=== PATIENT | female | born 1970 | race Caucasian/White ===

== ENCOUNTER 2023-11-16 13:22 | Outpatient (AMB) | payer MEDICAID, SELFPAY ==
--- NOTE | 2023-11-16 13:30 | MHC.OFFVIS ---
Vital Signs 11/16/23 13:43 Height 5 ft 1 in Weight 153 lb 4 oz BMI 29.0 BP 124/80 Blood Pressure Location Lt brachial Position Sitting Pulse 79 Pulse Source Pulse Oximeter Pulse Oximetry (%) 98 Oxygen Delivery Method Room Air Intake Visit Reasons: ENP-Vertigo -LVM Intake Note: Patient presents for vertigo. Almost everyday feeling dizzy. Feeling of balance when walking. Allergies No Known Allergies Allergy (Verified 11/16/23 13:35) Medication List - Last Reconciled 11/16/23 by BRIA Smith cetirizine 10 mg PO DAILY cholecalciferol (vitamin D3) (Vitamin D3) 50 mcg PO DAILY esomeprazole magnesium 20 mg PO DAILY levothyroxine (Synthroid) 100 mcg PO DAILY magnesium oxide 400 mg PO DAILY medroxyprogesterone 10 mg PO DAILY olmesartan 5 mg PO BID riboflavin (vitamin B2) 400 mg PO DAILY HPI Comments Details: 53-yr-old female presents for new pt evaluation of dizziness. Pt reports she started having dizziness about 3 years ago. She thought it was due to doing a lot of work in her home. At that time, she also started having BP changes- low at times and high at times- but was previously low. States this is better now that she is on BP tx. More recently, the dizziness is better. The dizziness is an off-balance sensation and ? lightheadedness. Sometimes can feel this when sitting. Can feel this after standing up or bending over. She can feel off-balance when the floor is carpeted w/ many colors/patterns or even a patterned floor that is not carpeted. Generally the dizziness is better in the warmer weather, and worse in the colder weather. Sometimes she can have horizontal diplopia- such as when watching something on her phone. Sometimes she will have blurry distance vision. Has neck pain- worse in the winter- started a few years ago. Has seen PT and chiropractor. Has chronic back pain- prone to feeling pain when she wakes up in the morning, sometimes has flare-up of back pain x's a few weeks. Her hands easily fall asleep when sitting and not moving her hands, or doing too much w/ her hands. Her feet may fall asleep too- but not as much. She has a tremor- notices internal tremor. Denies B&B changes. Her sleep is restless- tosses and turns states d/tbody pains- does not trigger dizziness. But laying flat makes her feel like she is falling backwards. Denies gait changes. She is prone to worry and anxiety- she is worried about what is going on in her home [facility]. When she has a migraine attack- the blurry vision and dizziness is worse. She started having migraine about 13 yrs ago. Migraine- may start w/ small lights that grow bigger and bigger f/b right sided headache a/w photophobia, some phonophobia, N/V, dizziness is worse, blurry vision is worse, feels generally weak, and BP raises, and needs to lay down. Migraine typically lasts a few days. She has milder headache before/after her menses, if tired or has not slept well. She states she has a strong severe headache about 3 times per year. She states maybe she does not drink enough- she tries to make herself drink. Denies room spinning dizziness. She has an annual eye exam- no sig changes.. She saw ENT- states they only checked her ears. Did vestibular PT- states it did make her feel unwell, maybe helped some. [facility] Surgical History (Updated 11/16/23 @ 13:40 by YUVAL West) History of thyroid surgery Family History (Updated 11/16/23 @ 13:42 by YUVAL West) Father Liver disease Mother No problems noted. Social History (Updated 11/16/23 @ 13:43 by YUVAL West) Household Members: Spouse and Children Housing: House Alcohol intake: never Patient Tobacco Use Status: Never used Tobacco Physical Exam Vital Signs: Last Vital Signs Pulse 79 11/16/23 13:43 BP 124/80 11/16/23 13:43 Pulse Ox 98 11/16/23 13:43 Oxygen Delivery Method Room Air 11/16/23 13:43 BMI result Body Mass Index 29.0 Const Orientation/consciousness: patient oriented x3 HEENT Other: No palpable scalp tenderness. Head: Yes normocephalic Resp Effort & Inspection: normal respiratory effort and able to speak in complete sentences Neuro Other: Romberg- sways some- but dose not lose balance. Bilateral posterior cervical tightness. General: patient oriented x3 Cranial nerves: Yes CN's II-XII intact bilaterally Cognition (Neuro): normal cognition Gait exam (Neuro): Normal gait present Motor exam (neuro): 5/5 motor strength present throughout Deep tendon reflexes (DTR's): Right triceps reflex intensity grade: 2+, Left triceps reflex intensity grade: 2+, Rt Biceps (C5, C6): 2+, Left biceps reflex intensity grade: 2+, Right brachioradialis reflex intensity grade: 2+, Left brachioradialis reflex intensity grade: 2+, Right patellar reflex intensity grade: 2+ and Left patellar reflex intensity grade: 2+ Coordination: [id number] test normal and tandem gait normal Pupils: Normal pupillary reactivity/response: bilateral Psych Appearance: grossly normal Mental Status: mental status grossly normal Speech and movement: Normal speech and movement present Affect: normal affect Attitude: cooperative Thought process: Normal thought process present Results Reviewed Results Reviewed: 11/25/2022, MRI Brain W+W/O Contrast [facility] VISIT NUMBER :[id number] Patient Name: Jaye García Date of : 1970 Date of Exam: 11-25-2022 Referring Physician: Everett De Leon [facility] [address] [facility] [address] [place] [address] Exam: MR Brain (C-/C+) CPT 93550 Room Description: [facility] 3T MR Brain (C-/C+) CPT 14087 INDICATION / CLINICAL QUESTION: Migraine headache Migraine headache TECHNIQUE: MRI of the brain was performed with and without contrast utilizing sagittal T1, 3D sagittal T1 LEMON with multiplanar reformats, fat saturated axial T2, axial FLAIR, axial SWAN, 3D axial T2 CUBE, and axial DWI sequences, and post-contrast 3D T1 LEMON with multiplanar reformats. 14 mL Dotarem intravenous contrast was administered. COMPARISON: None. FINDINGS: BRAIN and EXTRA-AXIAL SPACES: The ventricles and sulci are normal in size. There are scattered nonspecific punctate FLAIR hyperintensities in the subcortical and periventricular white matter without enhancement. There is no evidence of restricted diffusion to suggest acute infarction. The brainstem and cerebellum are normal. Vascular loop crosses over the superior aspect of the cisternal segments of the bilateral trigeminal nerves, with possible mass effect on the right side. There is no hemorrhage, midline shift, or mass effect. There is no extra-axial collection. Flow voids are preserved in the dominant intracranial vessels. There is no abnormal enhancement EXTRACRANIAL SOFT TISSUES: Orbits are unremarkable. Paranasal sinuses and mastoids are unremarkable. BONES: Marrow signal is preserved. IMPRESSION: No acute intracranial abnormality. No enhancing lesions. Mild nonspecific white matter signal changes have very broad differential, but are most commonly attributed to chronic small vessel disease in this age group. Vascular loop crosses over the cisternal segments of the bilateral trigeminal nerves, with possible mass effect on the right side. This can be correlated for right-sided trigeminal nerve symptoms. 07/25/23, MRI Cervical Spine W/O Contrast MRI Cervical Spine W/O Contrast Reason: M54.9 DORSALGIA M54.5 LOW BACK PAIN M54.2 CERVICALGIA M54.12 RADICULOPATHY CERVICAL REGION M62.838 MUSCLE SPASM R20.2 PARESTHESIA OF SKIN; Clinical Question(s): Other: Other: TECHNIQUE: MRI of the cervical spine was performed without intravenous contrast utilizing sagittal T1, sagittal T2, sagittal STIR, axial gradient echo, and axial T2-weighted sequences. COMPARISON: 07/12/2019 FINDINGS: LOCALIZER: No additional findings on limited localizer images. ALIGNMENT, VERTEBRAE, MARROW, AND DISCS: The cervical alignment is normal. The cervical vertebral bodies are normal in height. No marrow edema. The C7-T1 disc remains moderate-severity diminished in height. Mild loss of height at C5-C6 with uncovertebral spurring. Mild facet arthroses of the cervical spine. POSTERIOR FOSSA AND CORD: The visualized posterior cranial fossa structures and cervicomedullary junction are unremarkable. The cervical cord is normal in signal. PARASPINAL TISSUES: The paraspinal soft tissues and visualized vertebral artery flow voids are unremarkable DETAILED FINDINGS BY LEVEL: C2-C3: No significant canal stenosis or neural foraminal narrowing. C3-C4: Mild right facet arthrosis. No significant central canal or foraminal narrowing. C4-C5: A very subtle right paracentral disc protrusion has slightly increased in size. No significant central canal or foraminal narrowing. C5-C6: Posterior disc-osteophyte complex asymmetric to the left. Minimal indentation of the ventral thecal sac, unchanged. Minimal right and moderate-severe left foraminal stenosis. No significant change. C6-C7: A subtle right paracentral disc protrusion is noted incidentally indenting the ventral thecal sac. No foraminal stenosis. C7-T1: Minimal concentric disc-osteophyte complex. No significant central canal or foraminal narrowing. IMPRESSION: Degenerative changes of the cervical spine and discs as noted above. There is no new cord compression or cord signal abnormality. Foraminal narrowing remains most pronounced on the left at C5-C6. 07/25/23, MRI Thoracic Spine W/O Contrast MRI Thoracic Spine W/O Contrast Reason: M54.9 DORSALGIA M54.5 LOW BACK PAIN M54.2 CERVICALGIA M54.12 RADICULOPATHY CERVICAL REGION M62.838 MUSCLE SPASM R20.2 PARESTHESIA OF SKIN; Clinical Question(s): Other: / Other: TECHNIQUE: MRI of the thoracic spine was performed without intravenous contrast utilizing sagittal T1, sagittal T2, sagittal STIR, axial T1, and axial T2-weighted sequences. COMPARISON: None. FINDINGS: LOCALIZER: No additional findings on limited localizer images. The localizer images show 7 cervical, 12 thoracic, and 5 lumbar type vertebral bodies. ALIGNMENT, VERTEBRAE, MARROW, AND DISCS: Alignment is normal. Vertebral body heights are preserved. There are hemangiomas which are most prominent at the T5 and T8 levels. Multilevel endplate osteophytes are present. There is multilevel disc desiccation but there is no significant loss of intervertebral disc height. CORD: The thoracic cord is normal in signal and contour. PARASPINAL TISSUES: Visualized paraspinal soft tissues are unremarkable. There is a probable small uterine fibroid. FINDINGS BY LEVEL: There is a right paracentral disc protrusion at the C6-C7 level. There is a minimal disc bulge at C7-T1. There is a small left paracentral disc protrusion at T5-T6 and a small left paracentral disc protrusion at T6-T7. Mild facet arthropathy is noted at multiple levels. However, no significant central stenosis or neural foraminal narrowing is seen at any level in the thoracic spine. IMPRESSION: Minor degenerative changes of the thoracic spine with no significant canal stenosis or neural foraminal narrowing. 07/25/23, MRI Lumbar Spine W/O Contrast MRI Lumbar Spine W/O Contrast INDICATION: Reason: M54.9 DORSALGIA M54.5 LOW BACK PAIN M54.2 CERVICALGIA M54.12 RADICULOPATHY CERVICAL REGION M62.838 MUSCLE SPASM R20.2 PARESTHESIA OF SKIN; Clinical Question(s): Other: Other: TECHNIQUE: MRI of the lumbar spine was performed without intravenous contrast utilizing sagittal T1, sagittal T2, sagittal STIR, axial T1, and axial T2-weighted sequences. COMPARISON: None. FINDINGS: LOCALIZER: No additional findings on limited localizer images. NUMBERING: The study assumes 5 [id number] lumbar type vertebral bodies. ALIGNMENT, VERTEBRAE, MARROW, AND DISCS: Alignment is normal. Vertebral body heights are preserved. There is no significant marrow signal abnormality. There is disc desiccation at the L2-L3 and L4-L5 level. There are small endplate osteophytes at L2-L3. Intervertebral disc heights are preserved. Small hemangioma is noted at L4. CONUS: The conus is normal in signal and contour, with normal level of termination at L1-L2. PARASPINAL TISSUES: The paraspinal soft tissues are unremarkable. There are small simple appearing bilateral renal cysts which do not require dedicated follow-up. DETAILED FINDINGS BY LEVEL: L1-L2: No significant canal stenosis or neural foraminal narrowing. L2-L3: No significant canal stenosis or neural foraminal narrowing. L3-L4: No significant canal stenosis or neural foraminal narrowing. L4-L5: Minimal disc bulge and facet spurring. Left lateral annular fissure. No significant canal stenosis or neural foraminal narrowing. L5-S1: No significant canal stenosis or neural foraminal narrowing. IMPRESSION: Minor degenerative changes of the lumbar spine with no evidence for nerve root impingement. 09/07/22, Noncontrast CT head performed concurrently. FINDINGS: CTA OF THE NECK: Arch: There is a three vessel aortic arch. The origins of the supra aortic vessels are patent. Right carotid system: The common carotid and cervical internal carotid arteries are patent. No stenosis (0%) by NASCET criteria. There is no dissection or aneurysm. Left carotid system: The common carotid and cervical internal carotid arteries are patent. No stenosis (0%) by NASCET criteria. There is no dissection or aneurysm. There is a co-dominant vertebral artery system. Right vertebral: No significant stenosis. No evidence of dissection or aneurysm. Left vertebral: No significant stenosis. No evidence of dissection or aneurysm. Other: Soft tissues and bones: No evidence of lymphadenopathy or mass. The thyroid is unremarkable. Visualized lung apices are clear. Mild degenerative changes of the cervical spine are noted, without acute osseous abnormality. CTA OF THE HEAD: Anterior circulation: Bilateral intracranial ICAs and their JOSR and MCA branches are patent. There is no significant stenosis, proximal cutoff, aneurysm, or vascular malformation. Posterior circulation: Bilateral intracranial vertebral arteries, the basilar artery, and bilateral superior cerebellar and posterior cerebral branches are patent. There is no significant stenosis, proximal cutoff, aneurysm, or vascular malformation. Veins: Major dural venous sinuses are patent. Other: Soft tissues and bones: No midline shift or effacement of the basal cisterns. No space-occupying hemorrhage. No territorial loss of rae-white matter differentiation. Orbits are unremarkable. There is mild mucosal thickening in the inferior left maxillary sinus. Remaining paranasal sinuses and mastoids are clear. IMPRESSION: No proximal occlusion or high grade stenosis in the major arteries of the head and neck. 12/12/2019, BUE EMG/NCS: IMPRESSION: ?Abnormal study. There is nerve conduction study evidence of mild bilateral median mononeuropathies at the wrists (consistent with carpal tunnel syndromes) including focal sensory fiber demyelination without axon loss. ?EMG of bilateral abductor pollicis brevis muscle is normal. No nerve conduction study evidence of bilateral ulnar neuropathies at the wrists or elbows (cubital tunnel syndromes) or superficial radial neuropathies. No nerve conduction study evidence of a large fiber sensorimotor polyneuropathy affecting the upper extremities. No EMG evidence of bilateral brachial plexopathies or C6-T1 radiculopathies. No EMG evidence of myopathy affecting studied of muscles in the upper extremities. Assessment & Plan Assessment & Plan (1) Vertigo: Code(s): R42 - Dizziness and giddiness Category: Medical (2) Migraine: Code(s): G43.909 - Migraine, unspecified, not intractable, without status migrainosus Category: Medical (3) Cervicalgia: Code(s): M54.2 - Cervicalgia Category: Medical (4) Bilateral carpal tunnel syndrome: Code(s): G56.03 - Carpal tunnel syndrome, bilateral upper limbs Category: Medical Plan Brain MRI, November 2022- Vascular loop crosses over the cisternal segments of the bilateral trigeminal nerves, with possible mass effect on the right side. No clear evidence of right TN- will monitor. Advised to try taking Amitriptyline 10mg nightly. Add Baclofen 10mg qhs. Increase fluids. Monitor tremor, BUE CTS s/s. Futire considerations- referral back to vestibular tx, tilt table test. Pt seen in c/w Dr Molly Hathaway. Medications: New amitriptyline 10 mg PO BEDTIME 30 tabs 3RF 30 days baclofen 10 mg PO BEDTIME 30 tabs 3RF 30 days Coding Level of Care Code New Pt Level 4 (34074) Diagnoses Vertigo R42 Migraine G43.909 Cervicalgia M54.2 Bilateral carpal tunnel syndrome G56.03
[2023-11-16 13:43] VITALS: BP 124/80; PULSE 79; O2SAT 98; BMI 29.0
== END 2023-11-16 14:57 | disposition home or self-care (01) ==
PROVIDERS: PCP Physician Assistant Medical; Visit Provider Nurse Practitioner Family
DX: R42 Dizziness and giddiness (principal); G43.909 Migraine, unspecified, not intractable, without status migrainosus; M54.2 Cervicalgia; G56.03 Carpal tunnel syndrome, bilateral upper limbs
CPT/HCPCS: 99204

== ENCOUNTER → 2023-11-16 13:22 | Outpatient (BNVA) | payer MEDICAID, SELFPAY | PROVIDERS: PCP Physician Assistant Medical; Visit Provider Nurse Practitioner Family | DX: R42 Dizziness and giddiness (principal); G43.909 Migraine, unspecified, not intractable, without status migrainosus; M54.2 Cervicalgia; G56.03 Carpal tunnel syndrome, bilateral upper limbs | CPT/HCPCS: 99212 ==

== ENCOUNTER 2024-04-01 07:33 | Outpatient (AMB) | payer MEDICAID, SELFPAY ==
[2024-04-01 07:40] VITALS: BP 140/80; BMI 29.9
--- NOTE | 2024-04-01 07:40 | MHC.OFFVIS ---
Vital Signs 04/01/24 07:40 Height 5 ft 1 in Weight 158 lb BMI 29.9 BP 140/80 H Blood Pressure Location Rt brachial Position Sitting Intake Visit Reasons: 3 month f/u Intake Note: Patient presents for follow up Allergies No Known Allergies Allergy (Verified 04/01/24 07:42) Medication List - Last Reconciled 04/01/24 by BRIA Smith baclofen 10 mg PO BEDTIME 30 days cetirizine 10 mg PO DAILY cholecalciferol (vitamin D3) (Vitamin D3) 50 mcg PO DAILY esomeprazole magnesium 20 mg PO DAILY gabapentin 100 - 300 mg (1 - 3 x 100 mg) PO BEDTIME 30 days levothyroxine (Synthroid) 100 mcg PO DAILY magnesium oxide 400 mg PO DAILY medroxyprogesterone 10 mg PO DAILY olmesartan 5 mg PO BID riboflavin (vitamin B2) 400 mg PO DAILY HPI Comments Details: 53-yr-old female presents for f/u visit. She has had an occasional bout of dizziness, like being off-balance. Using Amitriptyline when she remembers to take it. States her migraine is ok- has some nights with headaches, uses Tylenol a few times a week-which helps regular headaches. No recent migraine. Pt reports she started having episodes of restless legs- legs are jumpy when she lays down- skeeps w/ head slightly elevated as laying flat causes difficulty breathing, a/w wheezing and increased resp rate (like taking an extra breathe). Initially this lasted 20 minutes, but the last time this lasted 40-60 minutes. Both the restlessness and breathing s/s resolve when she gets up to walk. Leg s/s are not affected by amitriptyline use. She also notes some swelling in her toes, back pain when she lays down, difficulty rolling over in bed d/t pain and heaviness, feels slow like an old woman when she gets up in the morning, everything feels harder and more difficult to do in the morning, tremor when she has to think about something or talk w/ someone or nervous, orthostatic lightheadedness, rarely may say something during a bad dream. Endorses h/o anemia. May snore. Denies gasping, leg cramps, creepy crawling sensation, SOB during the day. Denies hyposmia, constipation. Initial 11/16/23 HPI: 53-yr-old female presents for new pt evaluation of dizziness. Pt reports she started having dizziness about 3 years ago. She thought it was due to doing a lot of work in her home. At that time, she also started having BP changes- low at times and high at times- but was previously low. States this is better now that she is on BP tx. More recently, the dizziness is better. The dizziness is an off-balance sensation and ? lightheadedness. Sometimes can feel this when sitting. Can feel this after standing up or bending over. She can feel off-balance when the floor is carpeted w/ many colors/patterns or even a patterned floor that is not carpeted. Generally the dizziness is better in the warmer weather, and worse in the colder weather. Sometimes she can have horizontal diplopia- such as when watching something on her phone. Sometimes she will have blurry distance vision. Has neck pain- worse in the winter- started a few years ago. Has seen PT and chiropractor. Has chronic back pain- prone to feeling pain when she wakes up in the morning, sometimes has flare-up of back pain x's a few weeks. Her hands easily fall asleep when sitting and not moving her hands, or doing too much w/ her hands. Her feet may fall asleep too- but not as much. She has a tremor- notices internal tremor. Denies B&B changes. Her sleep is restless- tosses and turns states d/t body pains- does not trigger dizziness. But laying flat makes her feel like she is falling backwards. Denies gait changes. She is prone to worry and anxiety- she is worried about what is going on in her home [place] [facility]. When she has a migraine attack- the blurry vision and dizziness is worse. She started having migraine about 13 yrs ago. Migraine- may start w/ small lights that grow bigger and bigger f/b right sided headache a/w photophobia, some phonophobia, N/V, dizziness is worse, blurry vision is worse, feels generally weak, and BP raises, and needs to lay down. Migraine typically lasts a few days. She has milder headache before/after her menses, if tired or has not slept well. She states she has a strong severe headache about 3 times per year. She states maybe she does not drink enough- she tries to make herself drink. Denies room spinning dizziness. She has an annual eye exam- no sig changes.. She saw ENT- states they only checked her ears. Did vestibular PT- states it did make her feel unwell, maybe helped some. [facility] Medical History (Updated 04/07/24 @ 16:33 by BRIA Smith) Anemia Surgical History History of thyroid surgery Family History Father Liver disease Mother No problems noted. Social History Household Members: Spouse and Children Housing: House Alcohol intake: never Patient Tobacco Use Status: Never used Tobacco Physical Exam Vital Signs: Last Vital Signs BP 140/80 H 04/01/24 07:40 BMI result Body Mass Index 29.9 Const Orientation/consciousness: patient oriented x3 HEENT Head: Yes normocephalic Resp Effort & Inspection: normal respiratory effort and able to speak in complete sentences Neuro Other: RUE mild tremor in wing beta position. BUE RAFI intact FFM- intact Foot taps- slightly less fluid on right. Stands easily, shorter steps, but steady. General: patient oriented x3 Cranial nerves: Yes CN's II-XII intact bilaterally Cognition (Neuro): normal cognition Gait exam (Neuro): Normal gait present Motor exam (neuro): 5/5 motor strength present throughout Deep tendon reflexes (DTR's): Right patellar reflex intensity grade: 2+ and Left patellar reflex intensity grade: 2+ Psych Appearance: grossly normal Mental Status: mental status grossly normal Affect: normal affect Attitude: cooperative Assessment & Plan Assessment & Plan (1) Vertigo: Code(s): R42 - Dizziness and giddiness Category: Medical (2) Migraine: Code(s): G43.909 - Migraine, unspecified, not intractable, without status migrainosus Category: Medical (3) Cervicalgia: Code(s): M54.2 - Cervicalgia Category: Medical (4) Bilateral carpal tunnel syndrome: Code(s): G56.03 - Carpal tunnel syndrome, bilateral upper limbs Category: Medical (5) Snoring: Code(s): R06.83 - Snoring Category: Medical (6) Hypersomnia: Code(s): G47.10 - Hypersomnia, unspecified Category: Medical Plan Check labs for common etiologies of restless legs, tremor. HST to assess for sleep apnea. Increase fluids. Stop Amitriptyline 10mg nightly- may exacerbate restless leg s/s. Trial Gabapentin 100-300mg qhs- may help w/ tremor, pain, restless leg s/s. Baclofen 10mg qhs. Monitor tremor, BUE CTS s/s, headaches. No clear evidence of right TN- will monitor. Brain MRI, November 2022- Vascular loop crosses over the cisternal segments of the bilateral trigeminal nerves, with possible mass effect on the right side. Future considerations- referral back to vestibular tx, tilt table test. Orders: Orders Complete Blood Count Auto Diff Today D64.9 - Anemia, unspecified, I10 - Essential (primary) hypertension, R25.1 - Tremor, unspecified Methylmalonic Acid Today D64.9 - Anemia, unspecified, I10 - Essential (primary) hypertension, R25.1 - Tremor, unspecified Ferritin Today D64.9 - Anemia, unspecified, I10 - Essential (primary) hypertension, R25.1 - Tremor, unspecified TSH reflex Free T4 Today D64.9 - Anemia, unspecified, I10 - Essential (primary) hypertension, R25.1 - Tremor, unspecified Comprehensive Met. Panel Today D64.9 - Anemia, unspecified, I10 - Essential (primary) hypertension, R25.1 - Tremor, unspecified Homocysteine Today D64.9 - Anemia, unspecified, I10 - Essential (primary) hypertension, R25.1 - Tremor, unspecified Vitamin B12 and Folate Today D64.9 - Anemia, unspecified, I10 - Essential (primary) hypertension, R25.1 - Tremor, unspecified IRON PROFILE Today D64.9 - Anemia, unspecified, I10 - Essential (primary) hypertension, R25.1 - Tremor, unspecified Vitamin D 25-OH (D2 and D3) Today E55.9 - Vitamin D deficiency, unspecified RT home sleep study Today G47.10 - Hypersomnia, unspecified, R06.83 - Snoring Medications: New gabapentin 100 - 300 mg (1 - 3 x 100 mg) PO BEDTIME 30 days 90 caps 3RF Coding Level of Care Code Est Pt Level 4 (93112) Diagnoses Vertigo R42 Migraine G43.909 Cervicalgia M54.2 Bilateral carpal tunnel syndrome G56.03 Snoring R06.83 Hypersomnia G47.10
== END 2024-04-01 08:31 | disposition home or self-care (01) ==
PROVIDERS: PCP Physician Assistant Medical; Visit Provider Nurse Practitioner Family
DX: R42 Dizziness and giddiness (principal); G43.909 Migraine, unspecified, not intractable, without status migrainosus; M54.2 Cervicalgia; G56.03 Carpal tunnel syndrome, bilateral upper limbs; R06.83 Snoring; G47.10 Hypersomnia, unspecified
CPT/HCPCS: 99214

== ENCOUNTER → 2024-04-01 07:33 | Outpatient (BNVA) | payer MEDICAID, SELFPAY | PROVIDERS: PCP Physician Assistant Medical; Visit Provider Nurse Practitioner Family | DX: G43.909 Migraine, unspecified, not intractable, without status migrainosus (principal); G56.03 Carpal tunnel syndrome, bilateral upper limbs; G47.10 Hypersomnia, unspecified; M54.2 Cervicalgia; R06.83 Snoring; D64.9 Anemia, unspecified; R25.1 Tremor, unspecified; I10 Essential (primary) hypertension; R42 Dizziness and giddiness | CPT/HCPCS: 99212 ==

== ENCOUNTER 2024-04-08 11:43 | Outpatient (REF) | payer MEDICAID, SELFPAY ==
[2024-04-08 12:48] LABS: MANUAL DIFF FLAG NO
[2024-04-08 13:17] LABS: Basophils Percent Auto 0.5 % (0-2); Eosinophils Absolute Auto 0.1 X10*3/uL (0.0-0.4); Eosinophils Percent Auto 1.9 % (0-4); Hematocrit 38.8 % (37.0-47.0); Hemoglobin 13.5 g/dl (12.0-16.0); Imm Gran Abs Auto 0.01 X10*3/uL (0.00-0.03); Imm Gran Pct Auto 0.3 % (0.0-0.4); Lymphocytes Absolute Auto 1.6 X10*3/uL (1.2-4.9); Lymphocytes Percent Auto 43.7 % (20-40); Mean Corpuscular HGB Conc 34.8 g/dl (31.0-35.0); Mean Corpuscular Hemoglobin 30.3 pg (27.0-33.0); Mean Corpuscular Volume 87.2 fL (80.0-98.0); Mean Platelet Volume 10.4 fL (9.4-12.3); Monocytes Absolute Auto 0.3 X10*3/uL (0.1-1.2); Monocytes Percent Auto 7.7 % (2-11); Neutrophils Absolute Auto 1.7 x10*3/uL (2.0-8.3); Neutrophils Percent Auto 45.9 % (45-73); Platelet Count 282 X10*3/uL (160-400); Red Blood Count 4.45 X10*6/uL (4.20-5.50); Red Cell Distribution Width 11.5 % (11.0-16.0); White Blood Count 3.7 X10*3/uL (4.8-10.8)
[2024-04-08 14:24] LABS: Alanine Aminotransferase 19 U/L (0-31); Albumin Level 4.2 g/dL (3.5-5.0); Alkaline Phosphatase 62 U/L (39-117); Anion Gap 11 (12-20); Aspartate Amino Transferase 21 U/L (5-31); Bilirubin Total 0.4 mg/dL (0.0-1.0); Blood Urea Nitrogen 11 mg/dL (9-16); Calcium 9.7 mg/dL (8.4-10.2); Carbon Dioxide 26 mmol/L (22-29); Chloride 108 mmol/L (96-108); Estimated Glomerular Filt Rate > 60; Glucose Random 82 mg/dL (60-115); Iron 112 mcg/dL (30-160); Percent Iron Saturation 36 % (15-50); Potassium 3.5 mmol/L (3.3-5.1); Sodium 141 mmol/L (135-145); Total Iron Binding Capacity 307 mcg/dL (228-428); Total Protein 7.4 g/dL (6.5-8.0); Unsaturated Iron Binding 195 ug/dL
[2024-04-08 14:28] LABS: Ferritin 23 ng/mL (10-250); TSH reflex Free T4 0.73 uIU/mL (0.32-4.0)
[2024-04-08 14:44] LABS: Folate 16.4 ng/mL (> or = 4.0); Vitamin B12 494 pg/mL (200-900)
[2024-04-10 18:59] LABS: Homocysteine 6.9 umol/L (<10.4)
[2024-04-12 15:38] LABS: Methylmalonic Acid 125 nmol/L (55-335)
[2024-04-13 15:59] LABS: Vitamin D 25-OH, D2 <4 ng/mL; Vitamin D 25-OH, D3 24 ng/mL; Vitamin D 25-OH, Total 24 ng/mL (30-100)
== END 2024-04-08 11:44 | disposition home or self-care (01) ==
LOC: HO.HMGCLDS 11:43
PROVIDERS: PCP Physician Assistant Medical; Visit Provider Nurse Practitioner Family
DX: D64.9 Anemia, unspecified (principal); R25.1 Tremor, unspecified; I10 Essential (primary) hypertension; E55.9 Vitamin D deficiency, unspecified
CPT/HCPCS: 36415; 80053; 82306; 82607; 82728; 82746; 83090; 83540; 83921; 84443; 85025

== ENCOUNTER → 2024-05-22 10:02 | Outpatient (REF) | payer MEDICAID, SELFPAY | LOC: HO.SL 10:02 | PROVIDERS: PCP Physician Assistant Medical; Visit Provider Nurse Practitioner Family | DX: R06.83 Snoring (principal); G47.10 Hypersomnia, unspecified | CPT/HCPCS: 95806 ==

== ENCOUNTER → 2024-05-23 10:15 | Outpatient (BNV) | payer MEDICAID, SELFPAY | PROVIDERS: PCP Physician Assistant Medical; Visit Provider Psychiatry & Neurology Neurology | DX: R06.83 Snoring (principal); G47.10 Hypersomnia, unspecified | CPT/HCPCS: 95806 ==

== ENCOUNTER 2025-01-02 09:00 | Outpatient (AMB) | payer MEDICAID, SELFPAY ==
[2025-01-02 09:03] VITALS: BP 134/98; PULSE 81; O2SAT 98; BMI 29.1
--- NOTE | 2025-01-02 09:03 | MHC.OFFVIS ---
Vital Signs 01/02/25 09:03 Height 5 ft 1 in Weight 154 lb 2 oz BMI 29.1 BP 134/98 H Blood Pressure Location Lt brachial Position Sitting Pulse 81 Pulse Source Pulse Oximeter Pulse Oximetry (%) 98 Oxygen Delivery Method Room Air Intake Visit Reasons: Folow-up Intake Note: Patient presents follow up Vertigo/Migraine. Labs/HST in chart. Patient states migraines are better. Still has times of dizziness. Accompanied by: Self / Same As Patient Allergies No Known Allergies Allergy (Verified 01/02/25 09:05) Medication List - Last Reconciled 01/02/25 by BRIA Smith baclofen 10 mg PO BEDTIME 30 days cetirizine 10 mg PO DAILY cholecalciferol (vitamin D3) (Vitamin D3) 50 mcg PO DAILY esomeprazole magnesium 20 mg PO DAILY gabapentin 100 - 300 mg (1 - 3 x 100 mg) PO BEDTIME 30 days levothyroxine (Synthroid) 100 mcg PO DAILY magnesium oxide 400 mg PO DAILY medroxyprogesterone 10 mg PO DAILY olmesartan 5 mg PO BID riboflavin (vitamin B2) 400 mg PO DAILY HPI Comments Details: 53-yr-old female presents for f/u visit for dizziness, migraine/headache, and tremor. Interval labs were noatble for vit D def- pt started on OTC vit D supplement. lower ferritin level- 20. She has had an occasional bout of dizziness, like being off-balance. Her sleep varies, sometimes good, other times more fragmented. Restless legs are better since taking Mag, States her migraine and headaches are better right now- seem better since her menses stopped. Uses Tylenol prn. Taking Gabapentin 100mg qhs- tolerating well. Tried once to take 2 caps, but states her head felt strange in the am. No longer taking Baclofen. Is taking OTC man and B2. Continues to have tremor when anxious, or needs to speak to someone. Has had a couple of episode of having to really think about standing up, and once or twice having to think about initiating a step. Can still have orthostatic lightheadedness. Can feel general weakness and tredness if she does more, even say [place] May not drink enough fluids in a day, but tries. Notes too much exercise- tried to do 30 minutes a day, but after a month, she felt that she her body could not do anything. Can be prone to worry. Denies depression. Denies hyposmia- rather more osmophobic. Denies constipation. Denies family h/o PD or other movement d/o. Denies h/o neuroleptic tx, metoclopramide tx, or in-pt psychiatric hospitalization. Denies h/o occupational chemical exposures. Initial 11/16/23 HPI: 53-yr-old female presents for new pt evaluation of dizziness. Pt reports she started having dizziness about 3 years ago. She thought it was due to doing a lot of work in her home. At that time, she also started having BP changes- low at times and high at times- but was previously low. States this is better now that she is on BP tx. More recently, the dizziness is better. The dizziness is an off-balance sensation and ? lightheadedness. Sometimes can feel this when sitting. Can feel this after standing up or bending over. She can feel off-balance when the floor is carpeted w/ many colors/patterns or even a patterned floor that is not carpeted. Generally the dizziness is better in the warmer weather, and worse in the colder weather. Sometimes she can have horizontal diplopia- such as when watching something on her phone. Sometimes she will have blurry distance vision. Has neck pain- worse in the winter- started a few years ago. Has seen PT and chiropractor. Has chronic back pain- prone to feeling pain when she wakes up in the morning, sometimes has flare-up of back pain x's a few weeks. Her hands easily fall asleep when sitting and not moving her hands, or doing too much w/ her hands. Her feet may fall asleep too- but not as much. She has a tremor- notices internal tremor. Denies B&B changes. Her sleep is restless- tosses and turns states d/t body pains- does not trigger dizziness. But laying flat makes her feel like she is falling backwards. Denies gait changes. She is prone to worry and anxiety- she is worried about what is going on in her home [place] [facility]. When she has a migraine attack- the blurry vision and dizziness is worse. She started having migraine about 13 yrs ago. Migraine- may start w/ small lights that grow bigger and bigger f/b right sided headache a/w photophobia, some phonophobia, N/V, dizziness is worse, blurry vision is worse, feels generally weak, and BP raises, and needs to lay down. Migraine typically lasts a few days. She has milder headache before/after her menses, if tired or has not slept well. She states she has a strong severe headache about 3 times per year. She states maybe she does not drink enough- she tries to make herself drink. Denies room spinning dizziness. She has an annual eye exam- no sig changes.. She saw ENT- states they only checked her ears. Did vestibular PT- states it did make her feel unwell, maybe helped some. [facility] Medical History Anemia Surgical History History of thyroid surgery Family History Father Liver disease Mother No problems noted. Social History Household Members: Spouse and Children Housing: House Alcohol intake: never Patient Tobacco Use Status: Never used Tobacco Physical Exam Vital Signs: Last Vital Signs Pulse 81 01/02/25 09:03 BP 134/98 H 01/02/25 09:03 Pulse Ox 98 01/02/25 09:03 Oxygen Delivery Method Room Air 01/02/25 09:03 BMI result Body Mass Index 29.1 Const Orientation/consciousness: patient oriented x3 HEENT Head: Yes normocephalic Resp Effort & Inspection: normal respiratory effort and able to speak in complete sentences Neuro Other: RUE mild tremor in wing beat position. BUE RAFI intact FFM- intact Foot taps- slightly less fluid on left Stands easily, shorter steps, but steady. General: patient oriented x3 Cranial nerves: Yes CN's II-XII intact bilaterally Cognition (Neuro): normal cognition Gait exam (Neuro): Normal gait present Motor exam (neuro): 5/5 motor strength present throughout Deep tendon reflexes (DTR's): Right patellar reflex intensity grade: 2+ and Left patellar reflex intensity grade: 2+ Psych Appearance: grossly normal Mental Status: mental status grossly normal Affect: normal affect Attitude: cooperative Assessment & Plan Assessment & Plan (1) Vertigo: Code(s): R42 - Dizziness and giddiness Category: Medical (2) Migraine: Code(s): G43.909 - Migraine, unspecified, not intractable, without status migrainosus Category: Medical Qualifiers: Migraine type: migraine (< 15 days per month) without aura Status migrainosus presence: without status migrainosus Intractability: not intractable Qualified Code(s): G43.009 - Migraine without aura, not intractable, without status migrainosus (3) Cervicalgia: Code(s): M54.2 - Cervicalgia Category: Medical (4) Bilateral carpal tunnel syndrome: Code(s): G56.03 - Carpal tunnel syndrome, bilateral upper limbs Category: Medical (5) Snoring: Code(s): R06.83 - Snoring Category: Medical (6) Hypersomnia: Code(s): G47.10 - Hypersomnia, unspecified Category: Medical (7) Orthostatic lightheadedness: Code(s): R42 - Dizziness and giddiness Category: Medical (8) Anemia: Code(s): D64.9 - Anemia, unspecified Category: Medical (9) Low iron stores: Code(s): R79.0 - Abnormal level of blood mineral Category: Medical (10) Vitamin D deficiency: Code(s): E55.9 - Vitamin D deficiency, unspecified Category: Medical Plan Will recheck labs, b12, iron studies/ferritin. HST- unremarkable. Increase fluids. Start PT eval & tx- vestibular eval Will order tilt table test- to better understand orthostatic lightheadedness/dizziness. Trial Gabapentin 100mg at 9pm and 12am (bedtime). Pt stopped Baclofen 10mg qhs. Previous trials- Amitriptyline 10mg nightly- may exacerbate restless leg s/s. Monitor tremor, BUE CTS s/s, headaches. No clear evidence of right TN- will monitor. Brain MRI, November 2022- Vascular loop crosses over the cisternal segments of the bilateral trigeminal nerves, with possible mass effect on the right side. Orders: Orders PT Evaluation and Treatment Today H81.10 - Benign paroxysmal vertigo, unspecified ear Ferritin Today D64.9 - Anemia, unspecified, E55.9 - Vitamin D deficiency, unspecified, R79.0 - Abnormal level of blood mineral Vitamin B12 and Folate Today D64.9 - Anemia, unspecified, E55.9 - Vitamin D deficiency, unspecified, R79.0 - Abnormal level of blood mineral ECG Tilt Table Test Today R42 - Dizziness and giddiness Complete Blood Count Auto Diff Today D64.9 - Anemia, unspecified, E55.9 - Vitamin D deficiency, unspecified, R79.0 - Abnormal level of blood mineral Comprehensive [place]. Panel Fast Today D64.9 - Anemia, unspecified, E55.9 - Vitamin D deficiency, unspecified, R79.0 - Abnormal level of blood mineral Vitamin D 25-OH (D2 and D3) Today D64.9 - Anemia, unspecified, E55.9 - Vitamin D deficiency, unspecified, R79.0 - Abnormal level of blood mineral Hemoglobin A1c Today D64.9 - Anemia, unspecified, E55.9 - Vitamin D deficiency, unspecified, R79.0 - Abnormal level of blood mineral IRON PROFILE Today D64.9 - Anemia, unspecified, E55.9 - Vitamin D deficiency, unspecified, R79.0 - Abnormal level of blood mineral Medications: Changed From gabapentin 100 - 300 mg (1 - 3 x 100 mg) PO BEDTIME 30 days 90 caps 3RF To gabapentin at 9pm and 12am 100 mg PO BID 60 caps 3RF 30 days Coding Level of Care Code Est Pt Level 4 (99647) Diagnoses Vertigo R42 Migraine without aura and without status migrainosus, not intractable G43.009 Migraine type: migraine (< 15 days per month) without aura Status migrainosus presence: without status migrainosus Intractability: not intractable Cervicalgia M54.2 Bilateral carpal tunnel syndrome G56.03 Snoring R06.83 Hypersomnia G47.10 Orthostatic lightheadedness R42 Anemia D64.9 Low iron stores R79.0 Vitamin D deficiency E55.9
--- OUTSIDE RECORDS SUMMARY | 2025-01-02 09:20 | XMS_ITS | Clinical Summary ---
Author Organization [facility] [address] [facility] Address [address] [place] [address] Phone Care Team Providers Care Death Clearance Coordinator Name Role Phone Jayro Pierre MD Primary Care Provider [phone] Allergies No known active allergies Medications levothyroxine (SYNTHROID, LEVOTHROID) 100 mcg tablet Take 1 tablet (100 mcg total) by mouth 1 (one) time each day. Active olmesartan (BENICAR) 5 mg tablet Take 1 tablet (5 mg total) by mouth 1 (one) time each day. Active betamethasone, augmented, (DIPROLENE) 0.05 % ointment APPLY 1 APPLICATION ON THE SKIN EVERY DAY 5 Active cholecalciferol (VITAMIN D-3) 50 mcg (2,000 unit) capsule Take 1 capsule (2,000 Units total) by mouth daily. 5 Active esomeprazole (NexIUM) [address] capsule Take 1 capsule (20 mg total) by mouth 1 (one) time each day. 4 Active fluconazole (DIFLUCAN) 150 mg tablet TAKE 1 TABLET BY MOUTH. REPEAT DOSE IN 72 HOURS. 4 Active ketoconazole (NIZORAL) 2 % cream apply to affected area twice a day for 14 days 4 Active medroxyPROGESTE Chase (PROVERA) 10 mg tablet Take 1 tablet (10 mg total) by mouth 1 (one) time each day. for 10 days 4 Active ofloxacin (FLOXIN) 0.3 % otic solution PUT 10 DROPS IN BOTH EARS DAILY 4 Active riboflavin (VITAMIN B2) 400 mg tablet Take 1 tablet (400 mg total) by mouth 1 (one) time each day. Active VITAMIN B COMPLEX ORAL Take 1 capsule by mouth daily. Active Active Problems Problem Noted Date Diagnosed Date Multiple thyroid nodules 10/20/2022 Cervical disc herniation 12/19/2019 Hypothyroidism 12/19/2019 Surgical History Surgery Date Site/Laterality Comments OTHER SURGICAL HISTORY PROCEDURE: HISTORICAL SUBTOTAL THYROIDECTOMY Medical History Medical History Date Comments Hypothyroidism DX:Hypothyroidis m Hypothyroidism DX:Hypothyroidis m Family History Medical History Relation Name Comments No Known Problems Brother No Known Problems Daughter No Known Problems Father No Known Problems Mother No Known Problems Other No Known Problems Sister No Known Problems Son Autoimmune disease Neg Hx Breast cancer Neg Hx Colon cancer Neg Hx Coronary artery disease Neg Hx Diabetes Neg Hx Heart attack Neg Hx Heart failure Neg Hx Hyperlipidemia Neg Hx Hypertension Neg Hx Mental illness Neg Hx Prostate cancer Neg Hx Sleep apnea Neg Hx Thyroid disease Neg Hx Relation Name Status Comments Brother Daughter Father Mother Other Sister Son Social History Tobacco Use Types Packs/Day Years Used Date Smoking Tobacco: Never Smokeless Tobacco: Never Alcohol Use Standard Drinks/Week Comments Not Currently 0 (1 standard drink = 0.6 oz pur e alcohol) Comments No Sex and Gender Information Value Date Recorded Sex Assigned at Not on file Legal Sex Female 12:20 AM EST Gender Identity Not on file Sexual Orientation Not on file Obstetrics History Para Term AB IAB SAB Ectopic Multiple Livin g Live Births 4 3 3 Date Outcome GA Total Labor Labor/2nd/3rd Weight Sex Type Anes PTL Teresa A1 A5 Name Clin Term Term Term Last Filed Vital Signs Vital Sign Reading Time Taken Comments Blood Pressure 132/75 07/29/2024 11:09 AM EST Pulse 76 07/29/2024 11:09 AM EST Temperature - - Respiratory Rate - - Oxygen Saturation - - Inhaled Oxygen Concentration - - Weight 72.6 kg (160 lb) 07/29/2024 11:09 AM EST Height 154.9 cm (5' 1 ) 11/28/2023 10:19 AM EDT Body Mass Index 30.23 11/28/2023 10:19 AM EDT Plan of Treatment Health Maintenance Due Date Last Done Comments Hepatitis B Vaccines (1 of 3 - 19+ 3-dose series) 11/01/1990 DTaP,Tdap,and Td Vaccines (2 - Td or Tdap) 05/05/2020 05/05/2010 Pneumococcal Vaccine: 50+ Years (1 of 1 - PCV) 11/01/2021 Zoster Vaccines (1 of 2) 11/01/2021 HIV Screening 05/14/2022 Hepatitis C Screening 05/14/2022 Social Influencers of Health Screening 05/14/2022 COVID-19 Vaccine (1 - 2023-2 5 season) 2024 Depression Screening 06/05/2024 Influenza Vaccine (#1) 2025 Breast Cancer Screening 11/30/2025 12/01/19, 12/01/2023 Cervical Cancer Screening: HPV 07/29/2029 0 07/29/2024, 06/11/2019 Colorectal Cancer Screening: Colonoscopy 04/25/2033 04/25/2023 HIB Vaccines Aged Out No longer eligi ble based on patient's age to complete this topic HPV Vaccines Aged Out No longer eligi ble based on patient's age to complete this topic Hepatitis A Vaccines Aged Out No long er eligible based on patient's age to complete this topic IPV Vaccines Aged Out No longer eligi ble based on patient's age to complete this topic MMR Vaccines Aged Out No longer eligi ble based on patient's age to complete this topic Meningococcal ACWY Vaccine Aged Out N o longer eligible based on patient's age to complete this topic Meningococcal B Vaccine Aged Out No l onger eligible based on patient's age to complete this topic RSV Immunization Patients Under 20 months Aged Out No longer eligible b ased on patient's age to complete this topic Varicella Vaccines Aged Out No longer eligible based on patient's age to complete this topic Procedures Procedure Name Priority Date/Time Associated Diagnosis Comments THYROID STIMULATING HORMONE WITH REFLEX TO FREE T4 AND FREE T3 Routine 11/07/2024 3:19 PM EDT Nontoxic uninodular goiter HPV WITH REFLEX GENOTYPE Routine 07/29/2024 11:17 AM EST Encounter for annual physical examination excluding gynecological examination in a patient older than 17 years SCREENING MAMMOGRAPHY BI 2-VIEW BREAST INC CAD Routine 12/01/2023 2:28 PM EDT Encounter for screening mammogram for malignant neoplasm of breast HM COLONOSCOPY Routine 04/25/2023 from Last 3 Months or Most Recently Relevant to Health Maintenance Results * Thyroid stimulating hormone with reflex to free t4 and free t3 (11/07/2024 3:19 PM EDT) TSH 1.16 0.40 - 4.00 mcIU/mL LAB CHEMISTRY METHOD 11/07/2024 6:58 PM EDT [facility] Blood Venous blood specimen / Unknown Venipuncture / Unknown 11/07/2024 3:19 PM EDT 11/07/2024 4:43 PM EDT Ruth Greene MD LAB BLOOD ORDERABLES Final Res ult Performing Organization Address City/[facility]/ZIP Co de Phone Number [facility] [address] [place] [address], [place] [phone] * HPV with reflex genotype (07/29/2024 11:17 AM EST) Pathologist [facility] HPV Negative Negative LAB MICROBIOLOGY METHOD 07/30/2024 1:11 PM EST [facility] Brushing Cervix uteri structure / Unknown 07/29/2024 11:17 AM EST 07/30/2024 6:01 AM EST Delaney Carias CNM LAB MOLECULAR DIAGNOSTICS ORD ERABLES Final Result Performing Organization Address City/[facility]/ZIP Co de Phone Number [facility] [address] [place] [address], [place] [phone] * SCREENING MAMMOGRAPHY BI 2-VIEW BREAST INC CAD (12/01/2023 2:28 PM EDT) Anatomical Region Laterality Modality Radiographic Kendy ging 08/02/2023 10:5 1 AM EST Narrative 12/04/2023 7:38 AM EDT This is a summary report. The complete report is available in the patient's medical record. If you cannot access the medical record, please contact the sending organization for a detailed fax or copy. Full field digital screening tomosynthesis mammography, reviewed with CAD and compared to previous mammogram of 06/14/2019. The breast tissue is heterogeneously dense, limiting sensitivity. No suspicious mass, architectural distortion or suspicious calcifications are identified. IMPRESSION: : Dense breast tissue, limiting the sensitivity of mammography. No mammographic evidence of malignancy. BIRADS 1-Negative; N. 5 year breast cancer risk assessment 1.3 % Lifetime breast cancer risk assessment 10.8 % Breast cancer risk category Low (<15%) Procedure Note Tali Regalado MD - 03/20/2024 This is a summary report. The complete report is available in thepatient's medical record. If you cannot access the medical record, pleasecontact the sending organization for a detailed fax or copy. Full field digital screening tomosynthesis mammography, reviewed with CADand compared to previous mammogram of 06/14/2019. The breast tissue isheterogeneously dense, limiting sensitivity. No suspicious mass,architectural distortion or suspicious calcifications are identified. IMPRESSION: : Dense breast tissue, limiting the sensitivity of mammography. Nomammographic evidence of malignancy. BIRADS 1-Negative; N. 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
--- OUTSIDE RECORDS SUMMARY | 2025-01-02 09:20 | XMS_ITS | Clinical Summary ---
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 12/17/19 22 Active magnesium oxide (MAG-OX) 400 mg (241.3 mg elemental) tablet Take 1 tablet by mouth every morning. 01/14/20 23 Active esomeprazole (NEXIUM) 20 MG capsule Take 1 capsule by mouth daily as needed. 12/30/19 23 Active cetirizine (ZYRTEC) 10 MG tablet Take 1 tablet by mouth every morning. 10/31/19 23 Active ascorbic acid (VITAMIN C ORAL) Take by mouth. Active b complex vitamins capsule Take 1 capsule by mouth daily. Active CALCIUM ORAL Take by mouth. Ac tive cholecalciferol (VITAMIN D3) 2,000 unit capsuleIndications :Vitamin D deficiency, unspecified TAKE 1 CAPSULE BY MOUTH EVERY DAY 90 capsule 3 07/05/19 25 Active SYNTHROID 88 mcg tabletIndications: Postoperative hypothyroidism TAKE 1 TABLET BY MOUTH EVERY MORNING. 90 tablet 1 10/30/19 25 Active Active Problems Problem Noted Date Diagnosed Date Vitamin D deficiency, unspecified 10/30/2023 Assessment & Plan (07/13/2024 11:41 AM EST): History of low vitamin D, last tested in 10/2023 when it was down to 19. She is getting some vitamin D from her calcium supplement and 2000 IU D3 daily. -Added vitamin D level to the today's labs. Assessment & Plan (10/30/2023 8:32 PM EDT): History of low vitamin D. She is getting some vitamin D from her calcium supplement and taking a vitamin D pill of unknown dose maybe once a week. Added vitamin D to her next labs considering her fatigue. Other fatigue 10/30/2023 Assessment & Plan (10/30/2023 8:32 PM EDT): Very sleepy and tired despitesleeping 6 to 7 hours nightly. Sleep is disrupted as above. Denies any major bleeding. Added CBC to next labs. Thyroid nodule 09/16/2023 Assessment & Plan (07/13/2024 11:37 AM EST): Recent ultrasound images reviewed. Small thyroid without distinct nodule. Patient continues to complain about squeezing feeling in her neck especially with cold weather and dry mouth of recent onset. Denies any dysphagia, cough, shortness of breath or voice change. We discussed that her symptoms are unlikely related to her thyroid. No routine ultrasound is planned. Assessment & Plan (10/30/2023 8:28 PM EDT): See below. Assessment & Plan (09/16/2023 11:23 PM EDT): See below. Postoperative hypothyroidism 01/23/2023 Overview (09/16/2023): did not need thyroid hormone replacement after hemithyroidectomy at age 25. She lost 1 and started on levothyroxine during second around 2010. Assessment & Plan (07/13/2024 11:36 AM EST): Remains on Synthroid brand 100 mcg daily. Last TSH normal 1.39 in 10/2023 on this dose. Weight has been stable. Has occasional hot flash. Skipped last 2 cycles. Suspect slight over replacement considering brisk DTRs bilateral hand tremor. Patient had thyroid blood work by her chiropractor in May 2024, she will send it to us. -Continue current Synthroid dose for now -Check TSH today, will communicate through [facility]. -Follow-up in 1 year. Assessment & Plan (10/30/2023 8:30 PM EDT): Patient did not need thyroid hormone replacement after hemithyroidectomy at age 25. She lost 1 and started on levothyroxine during second around 2010. Gradually increasing dose from 50 mcg to 100 mcg daily. No change in dose for years. She did not feel good on the generic and has been taking Synthroid brand for years. She is clinically and biochemically euthyroid. Last TSH 1.4 in 05/2023 while taking 100 mcg Synthroid brand daily. She has been complaining about a lot of fatigue sleepiness within the last few weeks. She is waking up frequently with some liquid in her mouth likely related to reflux. Nocturia x 1. We decided to recheck her TSH make sure that she is euthyroid. Assessment & Plan (09/16/2023 11:25 PM EDT): Patient did not need thyroid hormone replacement after hemithyroidectomy at age 25. She lost 1 and started on levothyroxine during second around 2010. Gradually increasing dose from 50 mcg to 100 mcg daily. No change in dose for years. She did not feel good on the generic and has been taking Synthroid brand for years. She is clinically and biochemically euthyroid. Last TSH 1.4 in 05/2023 while taking 100 mcg Synthroid brand daily. Plan to continue current treatment. Repeat TSH yearly or as clinically indicated. Reviewed symptoms of under and over replacement, patient to call if concern. Assessment & Plan (01/23/2023 2:14 PM EDT): Patient did not need thyroid hormone replacement after hemithyroidectomy at age 25. She lost 1 and started on levothyroxine during second around 2010. Gradually increasing dose from 50 mcg to 100 mcg daily. No change in dose for years. She did not feel good on the generic and has been taking Synthroid brand for years. Recent TSH is not available. Somewhat brisk DTR and slight hand tremor may suggest slight over replacement. We discussed basic thyroid physiology, meaning of TFTs. Reviewed appropriate administration of levothyroxine and symptoms of under and over replacement. Will check TSH and adjust dose as needed. Patient would like to continue the brand Synthroid, will likely need PA. Abnormal thyroid biopsy 01/23/2023 Assessment & Plan (10/30/2023 8:28 PM EDT): Patient is status post left hemithyroidectomy at age 25 in [facility]. Suspect thyrotoxicosis before surgery but no records. Patient denies any thyroid cancer dx. [place] [facility] ( age 15). Tightness/choking sensation in the thyroid bed and voice changes started ~ 2021 especially while lying down. Had an FNA of a right lower/posterior lobe 2 x 1.2 x 1 cm nodule in 06/2022 revealing atypia of undetermined significance with risk of malignancy 6 to 18%. Patient was interested in right thyroid lobe removal because of her symptoms. She saw Dr. Michelle Reynaga on 07/13/2023 who did an informal neck ultrasound reporting a right mid/posterior 8 mm slightly hypoechoic nodule which appears to be extrathyroidal-? parathyroid adenoma or exophytic thyroid nodule. Likely this nodule was biopsied in 06/2022 though it was reported larger in 06/2022. Patient is normocalcemic with normal PTH level as of 07/2023. She has been taking Nexium for GERD and reports improvement in the tightness in her neck area. She is aware that the right thyroid lobectomy is unlikely to improve her symptoms. She had repeat FNA on 09/07/2023 of the right posterior/inferior nodule measuring 1.2 cm at the time of the biopsy. Unfortunately this biopsy was non diagnostic because of insufficient cellularity. Immunohistochemical stain to TTF-1 confirmed that scant follicular cells were present. Specimen for ThyroSeq was taken at the time of FNA but was not sent out. Now we have 1 biopsy of this right-sided nodule showing AUS and another one nondiagnostic. The nodule has not grown since 06/2022. We decided to repeat the ultrasound in 6-8 months as next step. Patient is aware that if the nodule is growing we would have to repeat the biopsy with molecular testing. Assessment & Plan (09/16/2023 11:22 PM EDT): Patient is status post left hemithyroidectomy at age 25 in [facility]. Suspect thyrotoxicosis before surgery but no records. Patient denies any thyroid cancer dx. [place] [facility] ( age 15). Tightness/choking sensation in the thyroid bed and voice changes started ~ 2021 especially while lying down. Had an FNA of a right lower/posterior lobe 2 x 1.2 x 1 cm nodule in 06/2022 revealing atypia of undetermined significance with risk of malignancy 6 to 18%. Patient was interested in right thyroid lobe removal because of her symptoms. She saw Dr. Michelle Reynaga on 07/13/2023 who did an informal neck ultrasound reporting a right mid/posterior 8 mm slightly hypoechoic nodule which appears to be extrathyroidal-? parathyroid adenoma or exophytic thyroid nodule. Likely this nodule was biopsied in 06/2022 though it was reported larger and then. Patient is normocalcemic with normal PTH level as of 07/13/2023. She has been taking Nexium for GERD and reports improvement in the tightness in her neck area. She is aware that the right thyroid lobectomy is unlikely to improve her symptoms. We decided to repeat the FNA of this right nodule with molecular testing. Advised patient to call for results if has not heard from us in 2 weeks. Assessment & Plan (01/23/2023 2:18 PM EDT): Patient is status post hemithyroidectomy likely left lobe removed at age 25 in [facility]. Suspect thyrotoxicosis before surgery but no records. Patient denies any thyroid cancer dx. [place] about [address] [place] [facility] ( age 15). Tightness in the thyroid bed for about 1 year especially while lying down. Had an FNA of a right lower lobe nodule, (size unknown to me, no prior US reports in chart) on 06/21/2022 at [facility]. Cytology is atypia of undetermined significance with risk of malignancy 6 to 18%. Explained that with this indeterminate FNA result we have several options to proceed including repeating the ultrasound to monitor size of nodule and repeat FNA if nodule is growing or repeating the ultrasound with molecular testing or surgery. Patient is interested in completion thyroidectomy because of her symptoms within the last year. We discussed that her symptoms in the thyroid bed could also be caused by GERD since symptoms improved somewhat after Nexium added few months ago. She still would like to have a surgical consultation, will refer to Dr. Michelle Reynaga Encounters Date Type Department Care Team Description 10/28/2024 Refill [facility] [address] [place] [address] Ruth Greene MD Med Change Request from Last 3 Months Social History Tobacco Use Types Packs/Day Years Used Date Smoking Tobacco: Never Smokeless Tobacco: Never Alcohol Use Standard Drinks/Week Comments Never 0 (1 standard drink = 0.6 oz pur e alcohol) Education Answer Date Recorded Are you interested in more education? Not on brenda e 10/17/2022 Are you concerned about learning? Not on file 10/17/2022 No 10/17/2022 No 10/17/2022 Digital Access Answer Date Recorded No 11/01/2022 No 11/01/2022 Reliable internet access at home? Not on file 11/01/2022 Device with a working camera? Not on file Comments Unknown Sex and Gender Information Value Date Recorded Sex Assigned at Not on file Legal Sex Female 4:09 PM EDT Gender Identity Not on file Sexual Orientation Not on file Last Filed Vital Signs Vital Sign Reading Time Taken Comments Blood Pressure 110/60 07/02/2024 11:28 AM EST Pulse 79 07/02/2024 11:28 AM EST Temperature - - Respiratory Rate - - Oxygen Saturation 99% 07/02/2024 11:28 AM EST Inhaled Oxygen Concentration - - Weight 71.2 kg (157 lb) 07/02/2024 11:28 AM EST Height 153.7 cm (5' 0.51 ) 07/02/2024 11:[address] Body Mass Index 30.15 07/02/2024 11:28 AM EST Plan of Treatment Upcoming Encounters Date Type Department Care Team (Late st Contact Info) Description 07/07/2025 11:00 AM EST Office Visit [facility] [address] [place] [address] Ruth Greene MD [address] [place] [phone] [email or web address] Health Maintenance Due Date Last Done Comments Adult Td,Tdap Booster 1971 LIPID PANEL 1971 DEPRESSION SCREENING 1983 HEPATITIS C SCREENING 11/01/1989 HIV ONE-TIME SCREENING (18-6 5 YEARS) 11/01/1989 MAMMOGRAM 2011 COLOGUARD 11/01/2016 COLONOSCOPY 11/01/2016 COLORECTAL CANCER SCREENING 11/01/2016 FIT TEST 11/01/2016 FOBT 11/01/2016 SIGMOIDOSCOPY 11/01/2016 VIRTUAL COLONOSCOPY 11/01/2016 PNEUMOCOCCAL VACCINES (50+ years) (1 of 1 - PCV) 11/01/2021 ZOSTER VACCINES (1 of 2) 11/01/2021 PAP SMEAR 06/11/2022 06/11/2019 COVID-19 VACCINE (1 - 2023-2 5 season) 2024 CREATININE LEVEL 10/22/2024 10/23/2023 POTASSIUM LEVEL 10/22/2024 10/23/2023 TSH LEVEL 07/02/2025 07/02/2024, 10/23/2023, 01/23/2023 SCREENING FOR DIABETES 10/22/2026 10/23/2023 SMOKING STATUS SCREENING (On ce After 26 Yrs) Completed 08/29/2023 HEPATITIS A VACCINES Aged Out No long er eligible based on patient's age to complete this topic HIB VACCINES Aged Out No longer eligi ble based on patient's age to complete this topic MENINGOCOCCAL VACCINES (ACWY) Aged Out No longer eligible based on patient's age to complete this topic MENINGOCOCCAL VACCINES (B) Aged Out N o longer eligible based on patient's age to complete this topic Medical Devices Not on file Procedures Procedure Name Priority Date/Time Associated Diagnosis Comments TSH WITH REFLEX Routine 07/02/2024 12:03 PM EST Thyroid nodule COMPREHENSIVE METABOLIC PANEL Routine 10/23/2023 12:40 PM EDT Vitamin D deficiency, unspecified from Last 3 Months or Most Recently Relevant to Health Maintenance Results * (ABNORMAL) TSH with reflex (07/02/2024 12:03 PM EST) TSH 0.22(L) 0.27 - 4.20 uIU/mL Blood 07/02/2024 12:0 3 PM EST 07/02/2024 12:08 PM EST us Ruth Greene MD LAB BLOOD ORDERABLES Final Res ult Performing Organization Address City/[facility]/ZIP Co de Phone Number [address] [address] * Comprehensive metabolic panel (10/23/2023 12:40 PM EDT) SODIUM 139 133 - 146 mmol/L POTASSIUM 3.9 3.3 - 5.1 mmol/L CHLORIDE 105 96 - 108 mmol/L CO2 22 21 - 35 mmol/L BUN 12 6 - 19 mg/dL CREATININE 0.50 0.5 - 1.5 mg/dL GLUCOSE 83 70 - 99 mg/dL ALBUMIN 4.2 3.9 - 4.8 g/dL TOTAL PROTEIN 7.0 6.5 - 8.0 g/dL CALCIUM 9.2 8.4 - 10.3 mg/dL ALKALINE PHOSPHATASE 52 39 - 117 U/L TOTAL BILIRUBIN 0.4 0.0 - 1.2 mg/dL AST 17 0 - 37 U/L ALT 12 0 - 40 U/L GLOBULIN 2.8 1 - 4.8 g/dL EGFR 113 >59 mL/min/1.7 3m2 Comment:Estimated glomerular filtration rate calculated using the CKD-EPI refit equation. ANION GAP 16 10 - 20 mmol/L Blood 10/23/2023 12:4 0 PM EDT 10/23/2023 12:57 PM EDT us Ruth Greene MD LAB BLOOD ORDERABLES Final Res ult [address] [place] [address] from Last 3 Months or Most Recently Relevant to Health Maintenance Insurance [place] [address] [place] [address] [place] [address] [place] [address] PCC [facility] PCC Care Teams Brazing Machine Operator Helper Relationship Specialty Start Date End Date Kimi Pierre MD [address] [place] [id number] PCP - General Internal Medicine 10/03/22 Additional Source Comments The information contained in this document represents components of the legal health record. It is not the complete legal health record.[facility]
== END 2025-01-02 09:59 | disposition home or self-care (01) ==
LOC: HO.HSMS 09:00
PROVIDERS: PCP Physician Assistant Medical; Visit Provider Nurse Practitioner Family
DX: R42 Dizziness and giddiness (principal); G43.009 Migraine without aura, not intractable, without status migrainosus; M54.2 Cervicalgia; G56.03 Carpal tunnel syndrome, bilateral upper limbs; R06.83 Snoring; G47.10 Hypersomnia, unspecified; D64.9 Anemia, unspecified; R79.0 Abnormal level of blood mineral; E55.9 Vitamin D deficiency, unspecified
CPT/HCPCS: 99214

== ENCOUNTER → 2025-01-02 09:00 | Outpatient (BNVA) | payer MEDICAID, SELFPAY | PROVIDERS: PCP Physician Assistant Medical; Visit Provider Nurse Practitioner Family | DX: R42 Dizziness and giddiness (principal); G43.009 Migraine without aura, not intractable, without status migrainosus; M54.2 Cervicalgia; G56.03 Carpal tunnel syndrome, bilateral upper limbs; R06.83 Snoring; G47.10 Hypersomnia, unspecified; R79.0 Abnormal level of blood mineral; D64.9 Anemia, unspecified; E55.9 Vitamin D deficiency, unspecified | CPT/HCPCS: 99212 ==

== ENCOUNTER 2025-01-14 09:27 | Outpatient (REF) | payer MEDICAID, SELFPAY ==
--- OUTSIDE RECORDS SUMMARY | 2025-01-14 10:06 | XMS_ITS | Clinical Summary ---
Author Organization [facility] [address] [facility] Address [address] [place] [address] Phone Care Team Providers Care Geospatial Intelligence Analyst Name Role Phone Jayro Pierre MD Primary Care Provider [phone]- [phone] Allergies No known active allergies Medications levothyroxine [...] LAB CHEMISTRY METHOD 11/07/2024 6:58 PM EDT [facility] Blood Venous blood specimen / Unknown Venipuncture / Unknown 11/07/2024 3:19 PM EDT 11/07/2024 4:43 PM EDT Ruth Greene MD LAB BLOOD ORDERABLES Final Res ult Performing Organization Address City/[facility]/ZIP Co de Phone Number [facility] [address] [place] [address], [place] [phone] * HPV with reflex genotype (07/29/2024 11:17 AM EST) Pathologist [facility] HPV Negative Negative LAB MICROBIOLOGY METHOD 07/30/2024 1:11 PM EST [facility] Brushing Cervix uteri structure / Unknown 07/29/2024 11:17 AM EST 07/30/2024 6:01 AM EST Delaney Carias CNM LAB MOLECULAR DIAGNOSTICS ORD ERABLES Final Result Performing Organization Address [facility]/ZIP Co de Phone Number [facility] [address] [place] [address], [place] [phone] * SCREENING MAMMOGRAPHY BI 2-VIEW BREAST INC [...] Documents on File Type Date Recorded 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
[2025-01-14 13:19] LABS: MANUAL DIFF FLAG NO
[2025-01-14 13:26] LABS: Hematocrit 36.0 % (37.0-47.0); Hemoglobin 13.0 g/dl (12.0-16.0); Imm Gran Abs Auto 0.00 X10*3/uL (0.00-0.03); Imm Gran Pct Auto 0.0 % (0.0-0.4); Lymphocytes Absolute Auto 1.4 X10*3/uL (1.2-4.9); Mean Corpuscular HGB Conc 36.1 g/dl (31.0-35.0); Mean Corpuscular Hemoglobin 31.2 pg (27.0-33.0); Mean Corpuscular Volume 86.3 fL (80.0-98.0); NRBC Abs Auto 0.000 X10*3/uL (0.0-0.012); NRBC Pct Auto 0.0 /100WBC (0.0-0.2); Platelet Count 251 X10*3/uL (160-400); Red Blood Count 4.17 X10*6/uL (4.20-5.50); White Blood Count 3.1 X10*3/uL (4.8-10.8)
[2025-01-14 13:49] LABS: Hemoglobin A1C 117.4593 umol/L; Total Hemoglobin (HGBA1C) 3530.0936 umol/L
[2025-01-14 13:50] LABS: Alanine Aminotransferase 15 U/L (0-31); Albumin Level 4.2 g/dL (3.5-5.0); Alkaline Phosphatase 55 U/L (39-117); Anion Gap 13 (12-20); Aspartate Amino Transferase 23 U/L (5-31); Blood Urea Nitrogen 11 mg/dL (9-16); Calcium 9.0 mg/dL (8.4-10.2); Carbon Dioxide 23 mmol/L (22-29); Chloride 109 mmol/L (96-108); Estimated Glomerular Filt Rate > 60; Iron 143 mcg/dL (30-160); Percent Iron Saturation 50 % (15-50); Potassium 3.7 mmol/L (3.3-5.1); Sodium 141 mmol/L (135-145); Total Iron Binding Capacity 285 mcg/dL (228-428); Total Protein 6.9 g/dL (6.5-8.0); Unsaturated Iron Binding 142 ug/dL
[2025-01-14 14:05] LABS: Ferritin 30 ng/mL (10-250)
[2025-01-14 14:12] LABS: Folate 14.2 ng/mL (> or = 4.0); Vitamin B12 485 pg/mL (200-900)
[2025-01-18 15:23] LABS: Vitamin D 25-OH, D2 <4 ng/mL; Vitamin D 25-OH, D3 36 ng/mL; Vitamin D 25-OH, Total 36 ng/mL (30-100)
== END 2025-01-14 09:28 | disposition home or self-care (01) ==
LOC: HO.HKASLDS 09:27
PROVIDERS: Visit Provider Nurse Practitioner Family
DX: R79.0 Abnormal level of blood mineral (principal); D64.9 Anemia, unspecified; E55.9 Vitamin D deficiency, unspecified
CPT/HCPCS: 36415; 80053; 82306; 82607; 82728; 82746; 83036; 83540; 85025